=== PATIENT | female | born 1970 | race Caucasian/White ===

== ENCOUNTER → 2022-06-26 08:09 | Outpatient (BNVA) | payer MEDICAID, SELFPAY | PROVIDERS: Visit Provider Nurse Practitioner Family | DX: R06.83 Snoring (principal); G47.9 Sleep disorder, unspecified; R40.0 Somnolence | CPT/HCPCS: 99202 ==

== ENCOUNTER → 2022-07-27 14:36 | Outpatient (REF) | payer MEDICAID, SELFPAY | LOC: HO.SL 14:36 | PROVIDERS: PCP Nurse Practitioner Family; Visit Provider Nurse Practitioner Family | DX: G47.33 Obstructive sleep apnea (adult) (pediatric) (principal) | CPT/HCPCS: 95806 ==